=== PATIENT | male | born 1975 ===

== ENCOUNTER 2021-06-28 21:51 | Emergency (ER) | payer SELFPAY ==
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
== END 2021-06-28 22:08 ==
LOC: MW.ED 21:51
DX: F10.129 Alcohol abuse with intoxication, unspecified (principal); R45.1 Restlessness and agitation
CPT/HCPCS: 99283